=== PATIENT | female | born 1985 | race Caucasian/White ===

== ENCOUNTER 2016-06-24 17:37 | Emergency (ER) | payer OTHER ==
[2016-06-24 17:46] VITALS: BP 128/82; PULSE 82; RESP 18; TEMP 98.2; O2SAT 95
--- NOTE | 2016-06-24 19:44 | EDPHY ---
H & P Stated Complaint: can't get psych meds needs zolpidem and lexapro/has been out Time Seen by Provider: 06/24/16 19:44 - Personal History LMP (Females 10-55): 15-21 Days Ago Current Tetanus/Diphtheria Vaccine: Yes - Medical/Surgical History Hx Asthma: No Hx Chronic Respiratory Disease: No Hx Diabetes: No Hx Cardiac Disease: No Hx Renal Disease: No Hx Cirrhosis: No Hx Alcoholism: No Hx HIV/AIDS: No Hx Splenectomy or Spleen Trauma: No Other PMH: depression/anxiety - Social History Smoking Status: Never smoked Constitutional: Initial Vital Signs Temperature (C) 36.8 C 06/24/16 17:43 Heart Rate 82 06/24/16 17:43 Respiratory Rate 18 06/24/16 17:43 Blood Pressure 128/82 H 06/24/16 17:43 O2 Sat (%) 95 06/24/16 17:43 O2 Delivery Mode Room Air Allergies/Adverse Reactions: No Known Allergies Allergy (Unverified 06/24/16 17:42) Home Medications: Medication Instructions Recorded ALPRAZolam 06/24/16 Alprazolam 0.5 mg PO DAILY #20 tablet 06/24/16 Escitalopram Oxalate [Lexapro] 20 mg PO DAILY #30 tablet 06/24/16 Lexapro 06/24/16 ZOLPIDEM TARTRATE 06/24/16 ZOLPIDEM TARTRATE [Ambien CR 12.5 12.5 mg PO HS #30 tab 06/24/16 mg] Medical Decision Making ED Course/Re-evaluation: CHIEF COMPLAINT: Medication refill request HISTORY OF PRESENT ILLNESS: This patient is a 30 year old female who presents to the Emergency Department concerned that she has been unable to get her medications refilled by her current PCP for the past three weeks and is nearing the end of her reserves. She requests 12.5mg Ambien ER, 0.5mg alprazolam, and 20mg Lexapro until she is able to get in to see a different primary care provider. She has no complaints at this time and has enough medication to last through tomorrow. Medical history includes depression and anxiety. REVIEW OF SYSTEMS: A 10 point review of systems was performed and is negative with the exception of the elements mentioned in the history of present illness. PHYSICAL EXAM: General Appearance: Alert, well hydrated, appropriate, and non-toxic appearing. Head: Atraumatic without scalp tenderness or obvious injury Eyes: Pupils equal, round, reactive to light and accommodation, EOMI, no trauma , no injection. Ears: Clear bilaterally, no perforation, normal landmarks Nose: Atraumatic, no rhinorrhea, clear. Throat: There is no erythema or exudates, no lesions, normal tonsils, mucus membranes moist. Neck: Supple, 2+ carotid upstroke, nontender, no lymphadenopathy. Respiratory: No retractions, no distress, no wheezes, and no accessory muscle use. Lungs are clear to auscultation bilaterally. Cardiovascular: Regular rate and rhythm, no murmurs, rubs, or gallops. Bilateral carotid, radial, dorsalis pedis, and posterior tibial pulses intact. Good capillary refill all extremities. Gastrointestinal: Abdomen is soft, nontender, non-distended, no masses, no rebound, no guarding, no peritoneal signs. Musculoskeletal: Normal active ROM of all extremities, atraumatic. Neurological: Alert, appropriate, and interactive. The patient has normal DTRs and non-focal cranial nerves, motor, sensory, and cerebellar exam. Skin: No rashes, good turgor, no nodules on palpation. Past medical history: Anxiety, depression. Past surgical history: Non-contributory. Family history: Non-contributory. Social history: Single, lives in [place]. MEDICAL DECISION MAKING: This 30 year old female presents without complaints. She reports that her PCP has been unresponsive and she has therefore been unable to get medication refills. I will write her a script for the medications that she brings to last 30 days and request that she schedule a follow-up appointment a new PCP to have medications refilled prior to then. She is agreeable to this and discharged home in good condition. Departure - Departure Disposition: Home, Routine, Self-Care Clinical Impression: Medication refill Condition: Good Instructions: Medicine Refill (ED) Additional Instructions: 1. Continue to take your medications as prescribed. 2. Call to schedule an appointment with a new internal medicine provider. We have referred you to Dr. Joe Thompson as an option to consider. 3. Return to the Emergency Department if you experience confusion, headache, anxiety, thoughts of self harm, or other serious concerns. Referrals: Anatoly Thompson MD [Medical Doctor] - As per Instructions Prescriptions: Alprazolam 0.5 mg PO DAILY #20 tablet ZOLPIDEM TARTRATE [Ambien CR 12.5 mg] 12.5 mg PO HS #30 tab Escitalopram Oxalate [Lexapro] 20 mg PO DAILY #30 tablet Report Scribed for: Prosper Kam Report Scribed by: Olivia Salcido Date of Report: 06/24/16 Time of Report: 19:45
== END 2016-06-24 19:56 | disposition home or self-care (01) ==
DX: Z76.0 Encounter for issue of repeat prescription (principal)